=== PATIENT | female | born 1985 | race African-American/Black ===

== ENCOUNTER 2021-03-06 02:20 | Inpatient (IN) | payer MEDICAID ==
[~2021-03-06] VITALS: Ht 175.3 cm; Wt 121.2 kg
[2021-03-06] MEDS ORDERED: FAMOTIDINE 20MG/2ML VIAL IV STA (04:36)
[2021-03-06] MEDS ORDERED: MORPHINE SULFATE 4 MG/ML CPJ (NOT FOR IM USE) IV STA (04:36)
[2021-03-06] MEDS ORDERED: SODIUM CHLORIDE 0.9% 1,000 ML IV ONE (04:45)
[2021-03-06 05:27] LABS: BASOPHILS % 0.4 % (0.0-2.0); EOSINOPHILS % 0.5 % (0.0-5.0); HEMATOCRIT. 38.2 % (36.0-48.0); LYMPHOCYTES % 15.1 % (20.0-50.0); MEAN CORPUSCULAR HEMOGLOBIN 25.3 pg (28.0-32.0); MEAN CORPUSCULAR VOLUME 80.8 fL (81.0-99.0); MEAN PLATELET VOLUME 8.8 fl (7.4-10.4); MONOCYTES % 5.5 % (2.0-8.0); NEUTROPHILS % 78.5 % (40.0-76.0); PLATELET 415 x1000/uL (130-400); RED BLOOD CELL COUNT 4.73 mill/uL (4.2-5.4); RED CELL DISTRIBUTION WIDTH 17.1 % (11.6-14.6)
[2021-03-06 05:28] LABS: CHLORIDE 98 mEq/L (98-107)
[2021-03-06 05:32] LABS: PROTHROMBIN TIME 10.7 sec (9.6-11.0)
[2021-03-06 05:37] LABS: HCG SCREEN NEGATIVE
[2021-03-06] MEDS ORDERED: METHOCARBAMOL 500MG TABLET PO ONE (07:30)
[2021-03-06] MEDS ORDERED: AZITHROMYCIN 500 MG TABLET PO ONE (09:15)
[2021-03-06] MEDS ORDERED: CEFTRIAXONE 1 G PREMIX 50 ML IV ONE (09:15)
[2021-03-06 09:48] LABS: CLARITY URINE CLEAR (CLEAR); COLOR URINE YELLOW (YELLOW); KETONES URINE NEGATIVE (NEGATIVE); LEUKOCYTE ESTERASE URINE NEGATIVE (NEGATIVE); NITRITE URINE NEGATIVE (NEGATIVE); OCCULT BLOOD URINE 1+ (NEGATIVE); PH URINE 5.5 (4.5-8.0); PROTEIN URINE TRACE (NEGATIVE); SPECIFIC GRAVITY URINE 1.032 (1.005-1.030)
[2021-03-06] MEDS ORDERED: DIPHENHYDRAMINE 50MG/ML VIAL IV PRN (14:15)
[2021-03-06] MEDS ORDERED: CLONIDINE 0.1MG TABLET PO PRN (14:15)
[2021-03-06] MEDS ORDERED: ACETAMINOPHEN 325MG TABLET PO PRN (14:15)
[2021-03-06] MEDS ORDERED: IPRATROPIUM/ALBUTEROL 0.5-3(2.5)MG/3ML NEB HHN PRN (14:15)
[2021-03-06] MEDS ORDERED: ONDANSETRON HCL 4MG/2ML INJ IV PRN (14:15)
[2021-03-06] MEDS ORDERED: ENOXAPARIN 40MG/0.4ML SYR SUBCUT SCH (15:00)
[2021-03-06 17:17] LABS: BG BASE EXCESS 3.6 mmol/L (-2.0-2.0); BG CARBOXYHEMOGLOBIN 0.7 % (0.5-1.5); BG DEOXYHEMOGLOBIN 3.6 % (0.0-5.0); BG FRACTION INSPIRED OXYGEN 38; BG HCO3 ACT 33.9 mmol/L (22.0-26.0); BG METHEMOGLOBIN 0.3 % (0.0-1.5); BG OXYGEN SATURATION 96.4 % (92.0-98.5); BG OXYHEMOGLOBIN 95.4 % (94.0-97.0); BG PCO2 83.7 mmHg (35.0-45.0); BG PH 7.225 (7.350-7.450); BG PO2 94.1 mmHg (75.0-100.0); BG SAMPLE SITE RIGHT RADIAL; BG TOTAL HEMOGLOBIN 13.3 g/dL (12.0-18.0); BG VENT MODE NASAL CANNULA
[2021-03-06 20:40] VITALS: BP 138/71
[2021-03-06 21:40] VITALS: BP 152/84
[2021-03-06] MEDS: AMLODIPINE 5MG TABLET PO SCH (21:51)
[2021-03-06 22:00] VITALS: BP 138/71
[2021-03-06 22:16] LABS: BG BASE EXCESS 7.1 mmol/L (-2.0-2.0); BG CARBOXYHEMOGLOBIN 0.9 % (0.5-1.5); BG DEOXYHEMOGLOBIN 6.5 % (0.0-5.0); BG FRACTION INSPIRED OXYGEN 28; BG HCO3 ACT 33.8 mmol/L (22.0-26.0); BG METHEMOGLOBIN 0.1 % (0.0-1.5); BG OXYGEN SATURATION 93.4 % (92.0-98.5); BG OXYHEMOGLOBIN 92.5 % (94.0-97.0); BG PH 7.383 (7.350-7.450); BG PO2 70.7 mmHg (75.0-100.0); BG SAMPLE SITE ALINE; BG TOTAL HEMOGLOBIN 12.1 g/dL (12.0-18.0); BG VENT MODE MASK - BIPAP
[2021-03-07] VITALS (12 sets, daily range): BP systolic 117–149; BP diastolic 65–100
[2021-03-07] MEDS ORDERED: DEXTROSE 50% WATER 50ML SYRINGE IV PRN (00:15)
[2021-03-07] MEDS: BLOOD SUGAR DIAGNOSTIC STRIP TEST SCH ×4 (06:11→21:00)
[2021-03-07 07:03] LABS: BASOPHILS % 0.4 % (0.0-2.0); EOSINOPHILS % 0.3 % (0.0-5.0); HEMATOCRIT. 36.7 % (36.0-48.0); HEMOGLOBIN. 11.3 g/dL (12.0-16.0); LYMPHOCYTES % 14.4 % (20.0-50.0); MEAN CORPUSCULAR HEMOGLOBIN 25.1 pg (28.0-32.0); MEAN CORPUSCULAR VOLUME 81.6 fL (81.0-99.0); MEAN PLATELET VOLUME 8.8 fl (7.4-10.4); MONOCYTES % 6.6 % (2.0-8.0); NEUTROPHILS % 78.3 % (40.0-76.0); PLATELET 408 x1000/uL (130-400); RED CELL DISTRIBUTION WIDTH 17.5 % (11.6-14.6)
[2021-03-07 07:20] LABS: CHLORIDE 100 mEq/L (98-107)
[2021-03-07 07:27] LABS: LDL CHOLESTEROL 96 mg/dL (5-100)
[2021-03-07 07:28] LABS: HDL CHOLESTEROL 62 mg/dL (40-59)
[2021-03-07] MEDS ORDERED: PNEUMOCOCCAL 23-VAL P-SAC VAC 0.5 ML IM ONE (08:00)
[2021-03-07] MEDS ORDERED: AZITHROMYCIN 500 MG in DEXT 5% WATER 250 ML IV SCH ×2 (08:00→09:00)
[2021-03-07] MEDS ORDERED: INFLUENZA VACCINE 05/PF 0.5 ML VIAL IM ONE (08:00)
[2021-03-07] MEDS: AMLODIPINE 5MG TABLET PO SCH ×2 (08:01→21:06)
[2021-03-07] MEDS: INSULIN LISPRO 100 UNITS/ML SUBCUT SCH ×4 (08:08→21:08)
[2021-03-07] MEDS: AZITHROMYCIN 500 MG in DEXT 5% WATER 250 ML IV SCH (09:00)
[2021-03-07] MEDS ORDERED: CEFTRIAXONE 1 G PREMIX 50 ML IV SCH (09:00)
[2021-03-07] MEDS ORDERED: CEFTRIAXONE 1,000 MG in DEXTROSE 5% WATER 50 ML IV SCH (09:00)
[2021-03-07] MEDS: CEFTRIAXONE 1 G PREMIX 50 ML IV SCH (09:30)
[2021-03-07] MEDS: ENOXAPARIN 30MG/0.3ML SYR SUBCUT SCH (21:07)
[2021-03-08] VITALS (13 sets, daily range): BP systolic 120–148; BP diastolic 72–93
[2021-03-08 05:47] LABS: BASOPHILS % 0.4 % (0.0-2.0); EOSINOPHILS % 1.5 % (0.0-5.0); HEMATOCRIT. 35.2 % (36.0-48.0); HEMOGLOBIN. 11.1 g/dL (12.0-16.0); LYMPHOCYTES % 22.3 % (20.0-50.0); MEAN CORPUSCULAR HEMOGLOBIN 25.9 pg (28.0-32.0); MEAN CORPUSCULAR VOLUME 82.1 fL (81.0-99.0); MEAN PLATELET VOLUME 8.5 fl (7.4-10.4); NEUTROPHILS % 68.8 % (40.0-76.0); PLATELET 356 x1000/uL (130-400); RED BLOOD CELL COUNT 4.28 mill/uL (4.2-5.4); RED CELL DISTRIBUTION WIDTH 17.5 % (11.6-14.6)
[2021-03-08 05:51] LABS: CHLORIDE 97 mEq/L (98-107)
[2021-03-08] MEDS: HYDROCODONE/ACETAMINOPHEN 5/325MG TABLET PO PRN ×2 (06:21→22:06)
[2021-03-08] MEDS: BLOOD SUGAR DIAGNOSTIC STRIP TEST SCH ×4 (07:13→21:00)
[2021-03-08] MEDS: CEFTRIAXONE 1 G PREMIX 50 ML IV SCH (08:14)
[2021-03-08] MEDS: ENOXAPARIN 30MG/0.3ML SYR SUBCUT SCH ×2 (08:14→22:06)
[2021-03-08] MEDS: AMLODIPINE 5MG TABLET PO SCH ×2 (08:14→22:06)
[2021-03-08] MEDS: INSULIN LISPRO 100 UNITS/ML SUBCUT SCH ×4 (08:15→21:00)
[2021-03-08 09:03] LABS: BG CARBOXYHEMOGLOBIN 1.4 % (0.5-1.5); BG FRACTION INSPIRED OXYGEN 21; BG HCO3 ACT 36.9 mmol/L (22.0-26.0); BG METHEMOGLOBIN 0.1 % (0.0-1.5); BG OXYGEN SATURATION 92.9 % (92.0-98.5); BG OXYHEMOGLOBIN 91.5 % (94.0-97.0); BG PCO2 68.6 mmHg (35.0-45.0); BG PH 7.349 (7.350-7.450); BG PO2 67.7 mmHg (75.0-100.0); BG SAMPLE SITE RIGHT RADIAL; BG TOTAL HEMOGLOBIN 12.2 g/dL (12.0-18.0); BG VENT MODE ROOM AIR
[2021-03-08] MEDS: AZITHROMYCIN 500 MG in DEXT 5% WATER 250 ML IV SCH (09:38)
[2021-03-08] MEDS ORDERED: IOHEXOL-350 100 ML BOTTLE ONE (22:46)
[2021-03-09] VITALS (11 sets, daily range): BP systolic 117–140; BP diastolic 62–85
[2021-03-09 05:56] LABS: BASOPHILS % 0.4 % (0.0-2.0); EOSINOPHILS % 2.5 % (0.0-5.0); HEMOGLOBIN. 11.3 g/dL (12.0-16.0); LYMPHOCYTES % 27.3 % (20.0-50.0); MEAN CORPUSCULAR HEMOGLOBIN 26.3 pg (28.0-32.0); MEAN CORPUSCULAR VOLUME 81.5 fL (81.0-99.0); MEAN PLATELET VOLUME 8.2 fl (7.4-10.4); MONOCYTES % 7.1 % (2.0-8.0); NEUTROPHILS % 62.7 % (40.0-76.0); PLATELET 385 x1000/uL (130-400); RED CELL DISTRIBUTION WIDTH 17.4 % (11.6-14.6)
[2021-03-09 05:58] LABS: CHLORIDE 99 mEq/L (98-107)
[2021-03-09] MEDS: BLOOD SUGAR DIAGNOSTIC STRIP TEST SCH ×4 (06:43→20:33)
[2021-03-09] MEDS: CEFTRIAXONE 1,000 MG in DEXTROSE 5% WATER 50 ML IV SCH (08:41)
[2021-03-09] MEDS: AZITHROMYCIN 500 MG in DEXT 5% WATER 250 ML IV SCH (08:41)
[2021-03-09] MEDS: ENOXAPARIN 30MG/0.3ML SYR SUBCUT SCH ×2 (08:41→20:49)
[2021-03-09] MEDS: INSULIN LISPRO 100 UNITS/ML SUBCUT SCH ×4 (08:42→20:49)
[2021-03-09] MEDS: AMLODIPINE 5MG TABLET PO SCH ×2 (08:42→20:49)
[2021-03-09] MEDS ORDERED: POTASSIUM CHLORIDE 20MEQ/PACKET PO NR (09:00)
[2021-03-10] VITALS (13 sets, daily range): BP systolic 103–141; BP diastolic 42–86
[2021-03-10] MEDS: BLOOD SUGAR DIAGNOSTIC STRIP TEST SCH ×5 (06:21→20:59)
[2021-03-10 06:57] LABS: BASOPHILS % 0.7 % (0.0-2.0); EOSINOPHILS % 2.9 % (0.0-5.0); HEMATOCRIT. 35.6 % (36.0-48.0); HEMOGLOBIN. 11.5 g/dL (12.0-16.0); LYMPHOCYTES % 26.9 % (20.0-50.0); MEAN CORPUSCULAR HEMOGLOBIN 26.3 pg (28.0-32.0); MEAN CORPUSCULAR VOLUME 81.7 fL (81.0-99.0); MEAN PLATELET VOLUME 8.1 fl (7.4-10.4); MONOCYTES % 8.1 % (2.0-8.0); NEUTROPHILS % 61.4 % (40.0-76.0); PLATELET 356 x1000/uL (130-400); RED BLOOD CELL COUNT 4.36 mill/uL (4.2-5.4); RED CELL DISTRIBUTION WIDTH 17.4 % (11.6-14.6)
[2021-03-10 07:43] LABS: CHLORIDE 100 mEq/L (98-107)
[2021-03-10] MEDS: CEFTRIAXONE 1,000 MG in DEXTROSE 5% WATER 50 ML IV SCH (08:49)
[2021-03-10] MEDS: AMLODIPINE 5MG TABLET PO SCH ×2 (08:49→21:22)
[2021-03-10] MEDS: INSULIN LISPRO 100 UNITS/ML SUBCUT SCH ×4 (08:50→21:21)
[2021-03-10] MEDS: ENOXAPARIN 30MG/0.3ML SYR SUBCUT SCH ×2 (08:50→21:20)
[2021-03-10] MEDS ORDERED: POTASSIUM CHLORIDE 20MEQ TABLET SR PO NR (10:30)
[2021-03-10] MEDS: AZITHROMYCIN 500 MG TABLET PO SCH (11:42)
[2021-03-10] MEDS: HYDROCODONE/ACETAMINOPHEN 5/325MG TABLET PO PRN (20:05)
[2021-03-11] VITALS (11 sets, daily range): BP systolic 105–146; BP diastolic 62–98
[2021-03-11] MEDS: BLOOD SUGAR DIAGNOSTIC STRIP TEST SCH ×3 (06:37→16:18)
[2021-03-11] MEDS: AZITHROMYCIN 500 MG TABLET PO SCH (09:20)
[2021-03-11] MEDS: ENOXAPARIN 30MG/0.3ML SYR SUBCUT SCH (09:21)
[2021-03-11] MEDS: AMLODIPINE 5MG TABLET PO SCH (09:21)
[2021-03-11] MEDS: CEFTRIAXONE 1,000 MG in DEXTROSE 5% WATER 50 ML IV SCH (09:21)
[2021-03-11] MEDS: INSULIN LISPRO 100 UNITS/ML SUBCUT SCH ×3 (09:22→16:59)
[2021-03-11] MEDS ORDERED: AMLO10TA80 MT (15:12)
[2021-03-11] MEDS ORDERED: AMOX-424 MT (15:42)
== END 2021-03-11 20:50 | disposition home or self-care (01) | DRG 720 ==
LOC: ER 02:20 → 3WST 13:17 → EDBEDREQSVC 18:04 → ENRESERV 19:22
PROVIDERS: ADMIT Internal Medicine; ATTEND Internal Medicine
PROC: 5A09557 Assistance with Respiratory Ventilation, Greater than 96 Consecutive Hours, Continuous Positive Airway Pressure (ICD-10-PCS; principal; 2021-03-06)
DX: A41.9 Sepsis, unspecified organism (principal); J96.01 Acute respiratory failure with hypoxia; J96.02 Acute respiratory failure with hypercapnia; J18.9 Pneumonia, unspecified organism; K42.9 Umbilical hernia without obstruction or gangrene; K43.6 Other and unspecified ventral hernia with obstruction, without gangrene; E66.2 Morbid (severe) obesity with alveolar hypoventilation; D25.9 Leiomyoma of uterus, unspecified; I10 Essential (primary) hypertension; R59.0 Localized enlarged lymph nodes; Z68.39 Body mass index [BMI] 39.0-39.9, adult
CPT/HCPCS: 36415; 36600; 71045; 71275; 74176; 80048; 80053; 80061; 81003; 82375; 82805; 82962; 83605; 84145; 84443; 84703; 85025; 93005; 93970; 94660; 97161; 99285; J0456; J0696; J1200; J1650; J1815; J2270; J3490; J7030; J7060; Q9967